=== PATIENT | female | born 1965 | race Two or more races ===

== ENCOUNTER 2018-01-21 11:28 | Outpatient (CLI) | payer OTHER | END 2018-01-21 11:30 | disposition home or self-care (01) | LOC: LAB 11:28 | DX: E11.42 Type 2 diabetes mellitus with diabetic polyneuropathy (principal); E78.2 Mixed hyperlipidemia; K76.0 Fatty (change of) liver, not elsewhere classified; E03.8 Other specified hypothyroidism; E55.9 Vitamin D deficiency, unspecified; D50.8 Other iron deficiency anemias; N39.0 Urinary tract infection, site not specified ==

== ENCOUNTER 2018-01-21 12:59 | Outpatient (CLI) | payer OTHER | END 2018-01-21 13:01 | disposition home or self-care (01) | LOC: SONOGRAMA 12:59 | DX: M72.0 Palmar fascial fibromatosis [Dupuytren] (principal) ==

== ENCOUNTER → 2019-03-30 | Outpatient (CLI) | payer OTHER | END | disposition home or self-care (01) | LOC: RAD 11:11 | DX: M25.512 Pain in left shoulder (principal) ==

== ENCOUNTER 2020-01-05 09:13 | Outpatient (CLI) | payer OTHER | END 2020-01-05 09:34 | disposition home or self-care (01) | LOC: LAB 09:13 | PROVIDERS: ATTEND Specialist | DX: D68.8 Other specified coagulation defects (principal); E78.49 Other hyperlipidemia; N39.0 Urinary tract infection, site not specified; J20.8 Acute bronchitis due to other specified organisms ==

== ENCOUNTER 2020-04-08 10:11 | Outpatient (CLI) | payer OTHER | END 2020-04-08 10:25 | disposition home or self-care (01) | LOC: LAB 10:11 | PROVIDERS: ATTEND Specialist | DX: D50.8 Other iron deficiency anemias (principal); N39.0 Urinary tract infection, site not specified; E11.42 Type 2 diabetes mellitus with diabetic polyneuropathy; E78.2 Mixed hyperlipidemia; K76.0 Fatty (change of) liver, not elsewhere classified; E03.8 Other specified hypothyroidism ==

== ENCOUNTER 2020-05-17 09:47 | Outpatient (CLI) | payer OTHER | END 2020-05-17 15:00 | disposition home or self-care (01) | LOC: LAB 09:47 | DX: Z03.818 Encounter for observation for suspected exposure to other biological agents ruled out (principal); Z20.822 Contact with and (suspected) exposure to COVID-19 ==

== ENCOUNTER 2020-07-22 09:53 | Outpatient (CLI) | payer OTHER | END 2020-07-22 10:02 | disposition home or self-care (01) | LOC: LAB 09:53 | PROVIDERS: ATTEND Specialist | DX: D50.8 Other iron deficiency anemias (principal); N39.0 Urinary tract infection, site not specified; E11.42 Type 2 diabetes mellitus with diabetic polyneuropathy; E78.2 Mixed hyperlipidemia; K76.0 Fatty (change of) liver, not elsewhere classified; E03.8 Other specified hypothyroidism ==

== ENCOUNTER → 2020-07-22 | Outpatient (CLI) | payer OTHER | END | disposition home or self-care (01) | LOC: MAMO-SONO 10:45 → SONOGRAMA 11:01 | PROVIDERS: ATTEND Specialist | DX: N84.0 Polyp of corpus uteri (principal) ==

== ENCOUNTER 2020-07-23 13:39 | Outpatient (CLI) | payer OTHER | END 2020-07-23 13:57 | disposition home or self-care (01) | LOC: LAB 13:39 | PROVIDERS: ATTEND General Practice | DX: R05 Cough (principal); R50.9 Fever, unspecified; R06.02 Shortness of breath; Z03.818 Encounter for observation for suspected exposure to other biological agents ruled out; Z20.828 Contact with and (suspected) exposure to other viral communicable diseases ==

== ENCOUNTER 2020-12-14 08:44 | Outpatient (CLI) | payer OTHER | END 2020-12-14 08:56 | disposition home or self-care (01) | LOC: LAB 08:44 | PROVIDERS: ATTEND Specialist | DX: E78.2 Mixed hyperlipidemia (principal); D50.8 Other iron deficiency anemias; N39.0 Urinary tract infection, site not specified; E11.42 Type 2 diabetes mellitus with diabetic polyneuropathy; K76.0 Fatty (change of) liver, not elsewhere classified; E03.8 Other specified hypothyroidism; E55.9 Vitamin D deficiency, unspecified ==

== ENCOUNTER 2021-04-15 10:19 | Outpatient (CLI) | payer OTHER | END 2021-04-15 10:26 | disposition home or self-care (01) | LOC: LAB 10:19 | PROVIDERS: ATTEND Specialist | DX: D50.8 Other iron deficiency anemias (principal); N39.0 Urinary tract infection, site not specified; E11.42 Type 2 diabetes mellitus with diabetic polyneuropathy; E78.2 Mixed hyperlipidemia; K76.0 Fatty (change of) liver, not elsewhere classified; E03.8 Other specified hypothyroidism; E21.0 Primary hyperparathyroidism ==

== ENCOUNTER 2024-10-12 09:28 | Outpatient (CLI) | payer OTHER | END 2024-10-12 09:39 | disposition home or self-care (01) | LOC: RAD 09:28 | PROVIDERS: ATTEND Physical Medicine & Rehabilitation Hospice and Palliative Medicine | DX: M75.31 Calcific tendinitis of right shoulder (principal); M75.32 Calcific tendinitis of left shoulder; M75.41 Impingement syndrome of right shoulder; M75.42 Impingement syndrome of left shoulder ==